=== PATIENT | male | born 1965 | race Caucasian/White ===

== ENCOUNTER 2023-10-07 07:08 | Inpatient (IN) | payer MEDICAID, OTHER ==
[~2023-10-07] VITALS: Ht 172.7 cm; Wt 59.0 kg
[2023-10-07] VITALS (43 sets, daily range): BP systolic 103–168; BP diastolic 61–135; PULSE 46–61; RESP 11–20; TEMP 97.4–98.1
[2023-10-07] MEDS ORDERED: ETOMIDATE 2MG/ML 10ML VIAL IV ONE (07:45)
[2023-10-07] MEDS ORDERED: SUCCINYLCHOLINE CHLORIDE 200MG/10ML IV ONE (07:45)
[2023-10-07] MEDS ORDERED: PROPOFOL 10MG/ML 100ML 100 ML IV ONE ×2 (07:45→12:00)
[2023-10-07 08:05] LABS: BASOPHILS % 2.2 % (0.0-2.0); DIFFERENTIAL COMMENT 0; EOSINOPHILS % 3.6 % (0.0-5.0); HEMATOCRIT. 21.9 % (42.0-52.0); LYMPHOCYTES % 19.2 % (20.0-50.0); MEAN CORPUSCULAR HEMOGLOBIN 29.1 pg (28.0-32.0); MEAN CORPUSCULAR HGB CONC 30.6 g/dL (31.0-37.0); MEAN CORPUSCULAR VOLUME 95.3 fL (80.0-94.0); MEAN PLATELET VOLUME 8.9 fl (7.4-10.4); MONOCYTES % 10.2 % (2.0-8.0); NEUTROPHILS % 64.8 % (40.0-76.0); PLATELET 200 x1000/uL (130-400); RED CELL DISTRIBUTION WIDTH 21.2 % (11.6-14.6); WHITE BLOOD COUNT 6.1 x1000/uL (4.5-11.0)
[2023-10-07 08:13] LABS: HEMOGLOBIN. 6.7 g/dL (14.0-18.0)
[2023-10-07 08:17] LABS: INR 1.2; PROTHROMBIN TIME 13.2 sec (9.6-11.0)
[2023-10-07 08:50] LABS: BG BASE EXCESS 2.9 mmol/L (-2.0-2.0); BG DEOXYHEMOGLOBIN 0.3 % (0.0-5.0); BG FRACTION INSPIRED OXYGEN 100; BG HCO3 ACT 27.2 mmol/L (22.0-26.0); BG METHEMOGLOBIN 0.1 % (0.0-1.5); BG OXYGEN SATURATION 99.7 % (92.0-98.5); BG OXYHEMOGLOBIN 98.6 % (94.0-97.0); BG PCO2 40.2 mmHg (35.0-45.0); BG PH 7.448 (7.350-7.450); BG PO2 445.5 mmHg (75.0-100.0); BG SAMPLE SITE RIGHT RADIAL; BG TOTAL HEMOGLOBIN 8.1 g/dL (12.0-18.0); BG TOTAL RESPIRATORY RATE 26 b/min; BG VENT MODE VENT - AC
[2023-10-07 08:53] LABS: ALANINE AMINOTRANSFERASE 15 IU/L (10-49); ALBUMIN 3.2 g/dL (3.2-4.8); ASPARTATE AMINOTRANSFERASE 29 IU/L (<34); BILIRUBIN TOTAL 0.6 mg/dL (0.1-1.0); CALCIUM 8.5 mg/dL (8.7-10.4); CARBON DIOXIDE 27 mEq/L (21-32); CHLORIDE 98 mEq/L (98-107); GLUCOSE 125 mg/dL (70-105); PROTEIN TOTAL 6.7 g/dL (6.0-8.3); SODIUM 137 mEq/L (136-145); TROPONIN I HIGH SENSITIVITY 21 ng/L (3.0-53); UREA NITROGEN BLOOD 43 mg/dL (9-23)
[2023-10-07 08:57] LABS: ETHANOL BLOOD < 10 mg/dL (<10)
[2023-10-07 08:59] LABS: CREATININE 5.7 mg/dL (0.6-1.3)
[2023-10-07] MEDS ORDERED: MIDAZOLAM HCL 100 MG in DEXT 5% WATER 80 ML IV ONE (09:00)
[2023-10-07] MEDS ORDERED: FENTANYL CITRATE/PF 50MCG/ML 2ML VIAL IV ONE (09:00)
[2023-10-07] MEDS ORDERED: MIDAZOLAM HCL 100 MG in SODIUM CHLORIDE 0.9% 100 ML IV PRN ×2 (09:00→17:00)
[2023-10-07] MEDS ORDERED: LIDOCAINE HCL 1% 10 MG/ML 10ML VIAL ONE (09:48)
[2023-10-07] MEDS ORDERED: ENOXAPARIN 40MG/0.4ML SYR SUBCUT SCH (10:15)
[2023-10-07] MEDS ORDERED: CLONIDINE 0.1MG TABLET PO PRN (10:15)
[2023-10-07] MEDS ORDERED: ACETAMINOPHEN 325MG TABLET PO PRN ×2 (10:15→10:30)
[2023-10-07] MEDS ORDERED: ONDANSETRON HCL 4MG/2ML INJ IV PRN (10:30)
[2023-10-07] MEDS ORDERED: DOCUSATE SODIUM 100MG CAPSULE PO PRN (10:30)
[2023-10-07] MEDS ORDERED: MAGNESIUM/ALUMINUM HYDROXIDE/SIMETHICONE 30ML UDC PO PRN (10:30)
[2023-10-07] MEDS ORDERED: IPRATROPIUM/ALBUTEROL 0.5-3(2.5)MG/3ML NEB HHN SCH ×2 (10:30→12:00)
[2023-10-07] MEDS ORDERED: GUAIFENESIN 200MG/10ML SUGAR FREE UDC PO PRN (10:30)
[2023-10-07] MEDS ORDERED: PIPERACILLIN/TAZ 3.375G PREMIX 50 ML IV SCH ×2 (10:30→11:00)
[2023-10-07] MEDS ORDERED: IPRATROPIUM/ALBUTEROL 0.5-3(2.5)MG/3ML NEB NEB PRN (10:30)
[2023-10-07] MEDS ORDERED: VANCOMYCIN 1.5GM/250ML IVPB 250 ML IV SCH (11:00)
[2023-10-07] MEDS ORDERED: DEXT 5%/0.45% NACL 1000ML 1,000 ML IV SCH (11:00)
[2023-10-07] MEDS ORDERED: IOHEXOL-350 100 ML BOTTLE ONE (11:14)
[2023-10-07 11:17] LABS: CHOLESTEROL 67 mg/dL (<200); HDL CHOLESTEROL 38 mg/dL (>55); IRON 32 ug/dL (65-175); LDL CHOLESTEROL 32 mg/dL (5-100); T4 FREE 1.21 ng/dL (0.89-1.76); THYROID STIMULATING HORMONE 1.87 uIU/mL (0.55-4.78); TOTAL IRON BINDING CAPACITY 209 ug/dl (250-425); TRIGLYCERIDE 49 mg/dL (0-150)
[2023-10-07 11:19] LABS: ETHANOL BLOOD < 10 mg/dL (<10)
[2023-10-07 11:30] LABS: AMMONIA < 17 uMol/L (<32)
[2023-10-07 12:05] LABS: PHOSPHORUS 5.8 mg/dL (2.5-4.9)
[2023-10-07 12:42] LABS: BG BASE EXCESS 2.4 mmol/L (-2.0-2.0); BG CARBOXYHEMOGLOBIN 1.3 % (0.5-1.5); BG DEOXYHEMOGLOBIN 0.3 % (0.0-5.0); BG FRACTION INSPIRED OXYGEN 100; BG METHEMOGLOBIN 0.1 % (0.0-1.5); BG OXYGEN SATURATION 99.7 % (92.0-98.5); BG OXYHEMOGLOBIN 98.3 % (94.0-97.0); BG PCO2 35.7 mmHg (35.0-45.0); BG PO2 431.9 mmHg (75.0-100.0); BG SAMPLE SITE RIGHT BRACHIAL; BG TOTAL HEMOGLOBIN 7.7 g/dL (12.0-18.0); BG VENT MODE VENT - AC
[2023-10-07] MEDS ORDERED: CARV6.2548 PO (14:57)
[2023-10-07] MEDS ORDERED: ATOR20TA65 PO (14:57)
[2023-10-07] MEDS ORDERED: CLOP75TA33 PO (14:57)
[2023-10-07] MEDS ORDERED: LOSA100T33 PO (14:57)
[2023-10-07] MEDS ORDERED: FURO80TA3 PO (14:57)
[2023-10-07] MEDS ORDERED: ASPI81TA43 PO (14:57)
[2023-10-07] MEDS: INSULIN LISPRO 100 UNITS/ML SUBCUT SCH ×2 (15:10→21:00)
[2023-10-07] MEDS: BLOOD SUGAR DIAGNOSTIC STRIP TEST SCH ×2 (15:11→21:02)
[2023-10-07 15:36] LABS: CREATINE KINASE 105 IU/L (46-171); TROPONIN I HIGH SENSITIVITY 23 ng/L (3.0-53)
[2023-10-07] MEDS ORDERED: MIDAZOLAM 100MG/100ML PMX 100 ML IV PRN (16:30)
[2023-10-07 17:04] LABS: VITAMIN B12 SERUM > 2000 pg/mL (211-911)
[2023-10-07] MEDS: DEXT 5%/0.45% NACL 1000ML 1,000 ML IV SCH (17:18)
[2023-10-07 17:36] LABS: HEMATOCRIT 25.5 % (42.0-52.0); HEMOGLOBIN 7.9 g/dL (14.0-18.0)
[2023-10-07] MEDS: CLONIDINE 0.1MG TABLET PO PRN (17:54)
[2023-10-07] MEDS: DEXTROSE 50% WATER 50ML SYRINGE IV PRN (18:25)
[2023-10-07 18:36] LABS: CLARITY URINE CLOUDY (CLEAR); COLOR URINE DARK YELLOW (YELLOW); GLUCOSE URINE NEGATIVE (NEGATIVE); KETONES URINE NEGATIVE (NEGATIVE); LEUKOCYTE ESTERASE URINE 1+ (NEGATIVE); NITRITE URINE NEGATIVE (NEGATIVE); OCCULT BLOOD URINE 2+ (NEGATIVE); PH URINE >9.0 (4.5-8.0); PROTEIN URINE NEGATIVE (NEGATIVE); SPECIFIC GRAVITY URINE 1.016 (1.005-1.030)
[2023-10-07 18:42] LABS: *AMPHETAMINES SCREEN URINE NEGATIVE (NEGATIVE); *BARBITURATES SCREEN URINE NEGATIVE (NEGATIVE); *BENZODIAZEPINES SCREEN URINE PRESUMPTIVE POSITIVE (NEGATIVE); *COCAINE SCREEN URINE NEGATIVE (NEGATIVE); CANNABINOID URINE SCREEN NEGATIVE (NEGATIVE); ECSTASY MDMA SCREEN URINE NEGATIVE (NEGATIVE); METHADONE URINE SCREEN Neg (NEGATIVE); OPIATES URINE SCREEN NEGATIVE (NEGATIVE); PHENCYCLIDINE URINE SCREEN NEGATIVE (NEGATIVE)
[2023-10-07 19:20] LABS: BACTERIA URINE 1+; RBC URINE TNTC /hpf (0-2); SQUAMOUS EPITHELIAL CELL URINE 1+ /lpf (RARE/1+)
[2023-10-07] MEDS: IPRATROPIUM/ALBUTEROL 0.5-3(2.5)MG/3ML NEB HHN SCH (20:29)
[2023-10-07] MEDS: PIPERACILLIN/TAZOBACTAM 3.375 G in DEXTROSE 5% WATER 50 ML IV SCH (20:43)
[2023-10-07] MEDS: PANTOPRAZOLE SODIUM 40 MG/VIAL IV SCH (20:43)
[2023-10-07] MEDS ORDERED: PIPERACILLIN/TAZOBACTAM 3.375 G in DEXTROSE 5% WATER 50 ML IV SCH (21:00)
[2023-10-07 22:21] LABS: HEPATITIS A AB IGM NEGATIVE (Negative); HEPATITIS B CORE AB IGM NEGATIVE (Negative); HEPATITIS B SURFACE ANTIGEN NEGATIVE (Negative); HEPATITIS C AB NON REACTIVE (Neg) (Negative)
[2023-10-07] MEDS: EPOETIN ALFA 4000UNITS/ML VIAL SUBCUT SCH (22:27)
[2023-10-07 23:47] LABS: CREATINE KINASE 94 IU/L (46-171); TROPONIN I HIGH SENSITIVITY 23 ng/L (3.0-53)
[2023-10-07 23:48] LABS: FOLIC ACID (FOLATE) SERUM 19.12 ng/mL (>5.38)
[2023-10-08] VITALS (69 sets, daily range): BP systolic 116–157; BP diastolic 60–91; PULSE 46–64; RESP 0–27; TEMP 96.5–98.5
[2023-10-08] MEDS: DEXT 5%/0.45% NACL 1000ML 1,000 ML IV SCH ×2 (05:26→09:37)
[2023-10-08 05:27] LABS: HEMATOCRIT. 26.7 % (42.0-52.0); HEMOGLOBIN. 8.4 g/dL (14.0-18.0); MEAN CORPUSCULAR HEMOGLOBIN 30.1 pg (28.0-32.0); MEAN CORPUSCULAR HGB CONC 31.4 g/dL (31.0-37.0); MEAN CORPUSCULAR VOLUME 95.9 fL (80.0-94.0); MEAN PLATELET VOLUME 8.7 fl (7.4-10.4); PLATELET 173 x1000/uL (130-400); RED BLOOD CELL COUNT 2.78 mill/uL (4.7-6.1); RED CELL DISTRIBUTION WIDTH 20.6 % (11.6-14.6); WHITE BLOOD COUNT 10.1 x1000/uL (4.5-11.0)
[2023-10-08 05:50] LABS: ALANINE AMINOTRANSFERASE 13 IU/L (10-49); ALBUMIN 2.8 g/dL (3.2-4.8); ASPARTATE AMINOTRANSFERASE 21 IU/L (<34); CALCIUM 8.3 mg/dL (8.7-10.4); CARBON DIOXIDE 26 mEq/L (21-32); CHLORIDE 101 mEq/L (98-107); CREATININE 4.6 mg/dL (0.6-1.3); GLUCOSE 68 mg/dL (70-105); PHOSPHORUS 4.4 mg/dL (2.5-4.9); POTASSIUM 4.3 mEq/L (3.5-5.1); SODIUM 136 mEq/L (136-145); TRIGLYCERIDE 58 mg/dL (0-150); UREA NITROGEN BLOOD 27 mg/dL (9-23)
[2023-10-08] MEDS: INSULIN LISPRO 100 UNITS/ML SUBCUT SCH ×4 (06:22→20:57)
[2023-10-08] MEDS: BLOOD SUGAR DIAGNOSTIC STRIP TEST SCH ×4 (06:22→20:57)
[2023-10-08] MEDS: DEXTROSE 50% WATER 50ML SYRINGE IV PRN (06:22)
[2023-10-08 07:04] LABS: DIFFERENTIAL COMMENT 1
[2023-10-08 08:07] LABS: BG CARBOXYHEMOGLOBIN 1.4 % (0.5-1.5); BG DEOXYHEMOGLOBIN 1.7 % (0.0-5.0); BG HCO3 ACT 24.2 mmol/L (22.0-26.0); BG METHEMOGLOBIN 0.3 % (0.0-1.5); BG OXYGEN SATURATION 98.3 % (92.0-98.5); BG OXYHEMOGLOBIN 96.6 % (94.0-97.0); BG PCO2 36.9 mmHg (35.0-45.0); BG PH 7.434 (7.350-7.450); BG PO2 122.9 mmHg (75.0-100.0); BG SAMPLE SITE RIGHT RADIAL; BG VENT MODE VENT - AC
[2023-10-08] MEDS: PROPOFOL 10MG/ML 100ML 100 ML IV PRN ×3 (08:16→20:57)
[2023-10-08] MEDS: IPRATROPIUM/ALBUTEROL 0.5-3(2.5)MG/3ML NEB HHN SCH ×4 (08:55→20:26)
[2023-10-08] MEDS: PANTOPRAZOLE SODIUM 40 MG/VIAL IV SCH ×2 (09:36→20:46)
[2023-10-08] MEDS: PIPERACILLIN/TAZOBACTAM 3.375 G in DEXTROSE 5% WATER 50 ML IV SCH ×2 (09:36→20:46)
[2023-10-08 11:15] LABS: LACTATE DEHYDROGENASE 453 IU/L (120-246)
[2023-10-08] MEDS: ENOXAPARIN 30MG/0.3ML SYR SUBCUT SCH (15:36)
[2023-10-08 16:19] LABS: BODY FLUID MONOCYTES 9 %
[2023-10-08 16:20] LABS: BODY FLUID RBC 26625 /cu mm (0-2000); BODY FLUID WBC 92 /cu mm (0-200)
[2023-10-08 16:43] LABS: ANISOCYTOSIS 2+; PLATELET ESTIMATE NORMAL
[2023-10-08] MEDS ORDERED: PROPOFOL 10MG/ML 100ML 100 ML IV PRN (17:45)
[2023-10-08 21:22] LABS: PROTEIN BODY FLUID 2.6 gm/dL
[2023-10-09] VITALS (83 sets, daily range): BP systolic 80–144; BP diastolic 49–74; PULSE 47–70; RESP 4–21; TEMP 96.9–98.1
[2023-10-09] MEDS: IPRATROPIUM/ALBUTEROL 0.5-3(2.5)MG/3ML NEB HHN SCH ×4 (01:01→20:27)
[2023-10-09 04:47] LABS: HEMATOCRIT. 26.9 % (42.0-52.0); HEMOGLOBIN. 8.7 g/dL (14.0-18.0); MEAN CORPUSCULAR HEMOGLOBIN 30.1 pg (28.0-32.0); MEAN CORPUSCULAR HGB CONC 32.2 g/dL (31.0-37.0); MEAN CORPUSCULAR VOLUME 93.4 fL (80.0-94.0); MEAN PLATELET VOLUME 8.8 fl (7.4-10.4); PLATELET 159 x1000/uL (130-400); RED BLOOD CELL COUNT 2.89 mill/uL (4.7-6.1); WHITE BLOOD COUNT 8.8 x1000/uL (4.5-11.0)
[2023-10-09 05:01] LABS: CALCIUM 8.1 mg/dL (8.7-10.4); CARBON DIOXIDE 25 mEq/L (21-32); CHLORIDE 100 mEq/L (98-107); GLUCOSE 107 mg/dL (70-105); PHOSPHORUS 5.4 mg/dL (2.5-4.9); POTASSIUM 4.6 mEq/L (3.5-5.1); SODIUM 134 mEq/L (136-145); TRIGLYCERIDE 75 mg/dL (0-150); UREA NITROGEN BLOOD 32 mg/dL (9-23)
[2023-10-09 05:05] LABS: CREATININE 5.8 mg/dL (0.6-1.3)
[2023-10-09 05:26] LABS: DIFFERENTIAL COMMENT 1
[2023-10-09] MEDS: BLOOD SUGAR DIAGNOSTIC STRIP TEST SCH ×4 (06:52→21:59)
[2023-10-09] MEDS: INSULIN LISPRO 100 UNITS/ML SUBCUT SCH ×4 (06:52→21:59)
[2023-10-09 09:28] LABS: BG BASE EXCESS -2.8 mmol/L (-2.0-2.0); BG CARBOXYHEMOGLOBIN 0.6 % (0.5-1.5); BG DEOXYHEMOGLOBIN 3.2 % (0.0-5.0); BG FRACTION INSPIRED OXYGEN 30; BG HCO3 ACT 21.5 mmol/L (22.0-26.0); BG METHEMOGLOBIN 0.1 % (0.0-1.5); BG OXYGEN SATURATION 96.8 % (92.0-98.5); BG OXYHEMOGLOBIN 96.1 % (94.0-97.0); BG PCO2 35.1 mmHg (35.0-45.0); BG PH 7.405 (7.350-7.450); BG SAMPLE SITE LEFT BRACHIAL; BG TOTAL HEMOGLOBIN 9.3 g/dL (12.0-18.0); BG VENT MODE VENT - AC
[2023-10-09] MEDS ORDERED: VANCOMYCIN 1.25GM PMX (XELLIA) 250 ML IV NR (09:30)
[2023-10-09 09:45] LABS: ANISOCYTOSIS 2+; PLATELET ESTIMATE NORMAL
[2023-10-09] MEDS: PIPERACILLIN/TAZOBACTAM 3.375 G in DEXTROSE 5% WATER 50 ML IV SCH ×2 (10:00→21:59)
[2023-10-09] MEDS: PANTOPRAZOLE SODIUM 40 MG/VIAL IV SCH ×2 (10:00→21:59)
[2023-10-09] MEDS: ENOXAPARIN 30MG/0.3ML SYR SUBCUT SCH (10:10)
[2023-10-09] MEDS: EPOETIN ALFA 4000UNITS/ML VIAL SUBCUT SCH (21:59)
[2023-10-10] VITALS (100 sets, daily range): BP systolic 127–152; BP diastolic 50–72; PULSE 43–66; RESP 0–23; TEMP 97.6–98.2
[2023-10-10] MEDS: PROPOFOL 10MG/ML 100ML 100 ML IV PRN ×3 (01:51→10:41)
[2023-10-10] MEDS: IPRATROPIUM/ALBUTEROL 0.5-3(2.5)MG/3ML NEB HHN SCH ×4 (02:34→19:49)
[2023-10-10 05:43] LABS: BASOPHILS % 0.5 % (0.0-2.0); EOSINOPHILS % 4.9 % (0.0-5.0); HEMATOCRIT. 26.2 % (42.0-52.0); HEMOGLOBIN. 8.2 g/dL (14.0-18.0); LYMPHOCYTES % 9.8 % (20.0-50.0); MEAN CORPUSCULAR HEMOGLOBIN 29.8 pg (28.0-32.0); MEAN CORPUSCULAR HGB CONC 31.4 g/dL (31.0-37.0); MEAN CORPUSCULAR VOLUME 94.8 fL (80.0-94.0); MEAN PLATELET VOLUME 8.8 fl (7.4-10.4); MONOCYTES % 8.5 % (2.0-8.0); NEUTROPHILS % 76.3 % (40.0-76.0); PLATELET 153 x1000/uL (130-400); RED BLOOD CELL COUNT 2.76 mill/uL (4.7-6.1); RED CELL DISTRIBUTION WIDTH 20.7 % (11.6-14.6); WHITE BLOOD COUNT 9.6 x1000/uL (4.5-11.0)
[2023-10-10] MEDS: BLOOD SUGAR DIAGNOSTIC STRIP TEST SCH ×4 (05:43→21:04)
[2023-10-10] MEDS: INSULIN LISPRO 100 UNITS/ML SUBCUT SCH ×4 (05:47→21:00)
[2023-10-10 05:55] LABS: CALCIUM 8.2 mg/dL (8.7-10.4); CARBON DIOXIDE 25 mEq/L (21-32); CHLORIDE 103 mEq/L (98-107); CREATININE 4.4 mg/dL (0.6-1.3); GLUCOSE 134 mg/dL (70-105); PHOSPHORUS 4.7 mg/dL (2.5-4.9); POTASSIUM 3.9 mEq/L (3.5-5.1); SODIUM 140 mEq/L (136-145); UREA NITROGEN BLOOD 27 mg/dL (9-23)
[2023-10-10 08:22] LABS: BG CARBOXYHEMOGLOBIN 0.7 % (0.5-1.5); BG DEOXYHEMOGLOBIN 9.5 % (0.0-5.0); BG METHEMOGLOBIN 0.3 % (0.0-1.5); BG OXYGEN SATURATION 90.4 % (92.0-98.5); BG OXYHEMOGLOBIN 89.5 % (94.0-97.0); BG PCO2 42.2 mmHg (35.0-45.0); BG PH 7.391 (7.350-7.450); BG PO2 64.4 mmHg (75.0-100.0); BG SAMPLE SITE RIGHT RADIAL; BG VENT MODE VENT - AC
[2023-10-10] MEDS: PIPERACILLIN/TAZOBACTAM 3.375 G in DEXTROSE 5% WATER 50 ML IV SCH ×2 (08:55→21:04)
[2023-10-10] MEDS: PANTOPRAZOLE SODIUM 40 MG/VIAL IV SCH ×2 (08:55→21:04)
[2023-10-10] MEDS ORDERED: ENOXAPARIN 30MG/0.3ML SYR SUBCUT ONE (12:15)
[2023-10-10] MEDS ORDERED: ZINC OXIDE 20% OINT 30GM TOP PRN (17:00)
[2023-10-10] MEDS: HYDRALAZINE 20MG/ML VIAL IV PRN (17:14)
[2023-10-10] MEDS ORDERED: IOHEXOL-300 100 ML BOTTLE ONE (18:38)
[2023-10-11] VITALS (64 sets, daily range): BP systolic 115–164; BP diastolic 57–77; PULSE 59–73; RESP 9–21; TEMP 97.4–98.2
[2023-10-11] MEDS: IPRATROPIUM/ALBUTEROL 0.5-3(2.5)MG/3ML NEB HHN SCH ×4 (04:11→20:14)
[2023-10-11] MEDS: HYDRALAZINE 20MG/ML VIAL IV PRN (04:37)
[2023-10-11 05:43] LABS: BASOPHILS % 0.8 % (0.0-2.0); EOSINOPHILS % 6.7 % (0.0-5.0); HEMATOCRIT. 28.8 % (42.0-52.0); HEMOGLOBIN. 8.9 g/dL (14.0-18.0); LYMPHOCYTES % 13.8 % (20.0-50.0); MEAN CORPUSCULAR HGB CONC 30.8 g/dL (31.0-37.0); MEAN CORPUSCULAR VOLUME 94.1 fL (80.0-94.0); MEAN PLATELET VOLUME 8.3 fl (7.4-10.4); MONOCYTES % 10.4 % (2.0-8.0); NEUTROPHILS % 68.3 % (40.0-76.0); PLATELET 159 x1000/uL (130-400); RED BLOOD CELL COUNT 3.06 mill/uL (4.7-6.1); RED CELL DISTRIBUTION WIDTH 20.2 % (11.6-14.6); WHITE BLOOD COUNT 8.3 x1000/uL (4.5-11.0)
[2023-10-11] MEDS: BLOOD SUGAR DIAGNOSTIC STRIP TEST SCH ×4 (06:02→20:43)
[2023-10-11] MEDS: INSULIN LISPRO 100 UNITS/ML SUBCUT SCH ×4 (06:15→20:44)
[2023-10-11] MEDS: PIPERACILLIN/TAZOBACTAM 3.375 G in DEXTROSE 5% WATER 50 ML IV SCH ×2 (08:41→20:43)
[2023-10-11] MEDS: ENOXAPARIN 30MG/0.3ML SYR SUBCUT SCH (08:43)
[2023-10-11 08:44] LABS: BG CARBOXYHEMOGLOBIN 0.3 % (0.5-1.5); BG DEOXYHEMOGLOBIN 2.2 % (0.0-5.0); BG FRACTION INSPIRED OXYGEN 30; BG METHEMOGLOBIN 0.2 % (0.0-1.5); BG OXYGEN SATURATION 97.8 % (92.0-98.5); BG OXYHEMOGLOBIN 97.3 % (94.0-97.0); BG PCO2 42.2 mmHg (35.0-45.0); BG PH 7.391 (7.350-7.450); BG PO2 121.1 mmHg (75.0-100.0); BG SAMPLE SITE LEFT RADIAL; BG TOTAL HEMOGLOBIN 9.1 g/dL (12.0-18.0); BG VENT MODE VENT - AC
[2023-10-11] MEDS: PANTOPRAZOLE SODIUM 40 MG/VIAL IV SCH ×2 (08:44→20:43)
[2023-10-11 09:23] LABS: CALCIUM 8.5 mg/dL (8.7-10.4); CARBON DIOXIDE 23 mEq/L (21-32); CHLORIDE 102 mEq/L (98-107); GLUCOSE 119 mg/dL (70-105); PHOSPHORUS 6.1 mg/dL (2.5-4.9); POTASSIUM 4.4 mEq/L (3.5-5.1); SODIUM 137 mEq/L (136-145); UREA NITROGEN BLOOD 36 mg/dL (9-23)
[2023-10-11 09:29] LABS: CREATININE 5.3 mg/dL (0.6-1.3)
[2023-10-11] MEDS ORDERED: AMLODIPINE 10MG TABLET PO NR (10:15)
[2023-10-11] MEDS ORDERED: LOSARTAN 25 MG TABLET PO SCH (15:15)
[2023-10-11] MEDS ORDERED: LACTULOSE 20G/30ML UDC PO PRN (15:30)
[2023-10-11] MEDS ORDERED: IRON SUCROSE COMPLEX 100 MG/5 ML ML IV SCH (16:00)
[2023-10-11 17:59] LABS: BG BASE EXCESS 4.6 mmol/L (-2.0-2.0); BG CARBOXYHEMOGLOBIN 0.7 % (0.5-1.5); BG DEOXYHEMOGLOBIN 1.9 % (0.0-5.0); BG FRACTION INSPIRED OXYGEN 30; BG HCO3 ACT 29.2 mmol/L (22.0-26.0); BG OXYGEN SATURATION 98.1 % (92.0-98.5); BG OXYHEMOGLOBIN 97.4 % (94.0-97.0); BG PCO2 43.8 mmHg (35.0-45.0); BG PH 7.442 (7.350-7.450); BG PO2 110.9 mmHg (75.0-100.0); BG SAMPLE SITE RIGHT RADIAL; BG TOTAL HEMOGLOBIN 8.5 g/dL (12.0-18.0); BG VENT MODE VENT - SIMV
[2023-10-11] MEDS: EPOETIN ALFA 4000UNITS/ML VIAL SUBCUT SCH (21:12)
[2023-10-11] MEDS: HYDRALAZINE HCL 25MG TABLET PO SCH (21:12)
[2023-10-12] VITALS (57 sets, daily range): BP systolic 125–161; BP diastolic 61–83; PULSE 61–74; RESP 12–22; TEMP 97.4–98.7
[2023-10-12] MEDS: IPRATROPIUM/ALBUTEROL 0.5-3(2.5)MG/3ML NEB HHN SCH ×3 (00:28→14:48)
[2023-10-12] MEDS: LORAZEPAM 4MG/ML VIAL IV PRN ×2 (01:32→08:27)
[2023-10-12 04:45] LABS: BASOPHILS % 1.3 % (0.0-2.0); EOSINOPHILS % 8.1 % (0.0-5.0); HEMATOCRIT. 29.7 % (42.0-52.0); HEMOGLOBIN. 9.3 g/dL (14.0-18.0); LYMPHOCYTES % 15.3 % (20.0-50.0); MEAN CORPUSCULAR HEMOGLOBIN 29.3 pg (28.0-32.0); MEAN CORPUSCULAR HGB CONC 31.5 g/dL (31.0-37.0); MEAN CORPUSCULAR VOLUME 93.2 fL (80.0-94.0); MEAN PLATELET VOLUME 8.3 fl (7.4-10.4); MONOCYTES % 10.3 % (2.0-8.0); PLATELET 163 x1000/uL (130-400); RED BLOOD CELL COUNT 3.19 mill/uL (4.7-6.1); RED CELL DISTRIBUTION WIDTH 19.6 % (11.6-14.6); WHITE BLOOD COUNT 6.8 x1000/uL (4.5-11.0)
[2023-10-12 05:08] LABS: CALCIUM 8.6 mg/dL (8.7-10.4); CARBON DIOXIDE 29 mEq/L (21-32); CHLORIDE 102 mEq/L (98-107); CREATININE 4.5 mg/dL (0.6-1.3); GLUCOSE 114 mg/dL (70-105); PHOSPHORUS 4.9 mg/dL (2.5-4.9); POTASSIUM 3.9 mEq/L (3.5-5.1); SODIUM 141 mEq/L (136-145); UREA NITROGEN BLOOD 35 mg/dL (9-23)
[2023-10-12] MEDS: HYDRALAZINE HCL 25MG TABLET PO SCH ×3 (05:14→21:35)
[2023-10-12] MEDS: INSULIN LISPRO 100 UNITS/ML SUBCUT SCH ×4 (06:23→21:00)
[2023-10-12] MEDS: BLOOD SUGAR DIAGNOSTIC STRIP TEST SCH ×4 (06:23→22:00)
[2023-10-12 08:26] LABS: BG BASE EXCESS 3.5 mmol/L (-2.0-2.0); BG DEOXYHEMOGLOBIN 2.4 % (0.0-5.0); BG HCO3 ACT 28.6 mmol/L (22.0-26.0); BG METHEMOGLOBIN 0.2 % (0.0-1.5); BG OXYGEN SATURATION 97.6 % (92.0-98.5); BG OXYHEMOGLOBIN 96.4 % (94.0-97.0); BG PCO2 45.9 mmHg (35.0-45.0); BG PH 7.412 (7.350-7.450); BG PO2 101.2 mmHg (75.0-100.0); BG SAMPLE SITE RIGHT RADIAL; BG TOTAL HEMOGLOBIN 9.2 g/dL (12.0-18.0); BG VENT MODE VENT - SIMV
[2023-10-12] MEDS: POLYETHYLENE GLYCOL 3350 (17GM) 1 DOSE PACK PO SCH (09:00)
[2023-10-12] MEDS: PIPERACILLIN/TAZOBACTAM 3.375 G in DEXTROSE 5% WATER 50 ML IV SCH ×2 (09:07→21:17)
[2023-10-12] MEDS: ENOXAPARIN 30MG/0.3ML SYR SUBCUT SCH (09:08)
[2023-10-12] MEDS: PANTOPRAZOLE SODIUM 40 MG/VIAL IV SCH ×2 (09:09→21:17)
[2023-10-12] MEDS: HYDRALAZINE 20MG/ML VIAL IV PRN ×2 (09:26→18:59)
[2023-10-12 12:02] LABS: BG BASE EXCESS 4.4 mmol/L (-2.0-2.0); BG CARBOXYHEMOGLOBIN 0.9 % (0.5-1.5); BG DEOXYHEMOGLOBIN 2.4 % (0.0-5.0); BG METHEMOGLOBIN 0.2 % (0.0-1.5); BG OXYGEN SATURATION 97.6 % (92.0-98.5); BG OXYHEMOGLOBIN 96.5 % (94.0-97.0); BG PCO2 49.7 mmHg (35.0-45.0); BG PH 7.398 (7.350-7.450); BG PO2 101.1 mmHg (75.0-100.0); BG SAMPLE SITE RIGHT RADIAL; BG TOTAL HEMOGLOBIN 9.7 g/dL (12.0-18.0); BG VENT MODE VENT - CPAP
[2023-10-12] MEDS ORDERED: FENTANYL CITRATE/PF 2,500 MCG in SODIUM CHLORIDE 0.9% 200 ML IV PRN (21:00)
[2023-10-12] MEDS: PROPOFOL 10MG/ML 100ML 100 ML IV PRN (21:02)
[2023-10-13] VITALS (92 sets, daily range): BP systolic 106–170; BP diastolic 54–81; PULSE 55–103; RESP 8–26; TEMP 97.3–98.3; O2SAT 95
[2023-10-13] MEDS: PROPOFOL 10MG/ML 100ML 100 ML IV PRN (02:59)
[2023-10-13] MEDS: BLOOD SUGAR DIAGNOSTIC STRIP TEST SCH ×4 (05:55→21:00)
[2023-10-13] MEDS: HYDRALAZINE HCL 25MG TABLET PO SCH ×3 (05:55→21:24)
[2023-10-13 06:03] LABS: BASOPHILS % 1.1 % (0.0-2.0); EOSINOPHILS % 10.2 % (0.0-5.0); HEMATOCRIT. 27.7 % (42.0-52.0); HEMOGLOBIN. 8.6 g/dL (14.0-18.0); LYMPHOCYTES % 17.2 % (20.0-50.0); MEAN CORPUSCULAR HEMOGLOBIN 29.2 pg (28.0-32.0); MEAN CORPUSCULAR VOLUME 94.2 fL (80.0-94.0); MEAN PLATELET VOLUME 8.2 fl (7.4-10.4); MONOCYTES % 14.5 % (2.0-8.0); PLATELET 151 x1000/uL (130-400); RED BLOOD CELL COUNT 2.94 mill/uL (4.7-6.1); RED CELL DISTRIBUTION WIDTH 19.3 % (11.6-14.6); WHITE BLOOD COUNT 5.9 x1000/uL (4.5-11.0)
[2023-10-13 06:26] LABS: CALCIUM 8.5 mg/dL (8.7-10.4); CARBON DIOXIDE 27 mEq/L (21-32); CHLORIDE 102 mEq/L (98-107); GLUCOSE 114 mg/dL (70-105); PHOSPHORUS 4.6 mg/dL (2.5-4.9); POTASSIUM 3.9 mEq/L (3.5-5.1); SODIUM 139 mEq/L (136-145); UREA NITROGEN BLOOD 35 mg/dL (9-23)
[2023-10-13 06:37] LABS: CREATININE 5.5 mg/dL (0.6-1.3)
[2023-10-13] MEDS: INSULIN LISPRO 100 UNITS/ML SUBCUT SCH ×4 (06:37→21:00)
[2023-10-13] MEDS: ACETYLCYSTEINE 200MG/ML 20% VIAL 4ML INH SCH (08:15)
[2023-10-13] MEDS: PANTOPRAZOLE SODIUM 40 MG/VIAL IV SCH ×2 (08:49→21:23)
[2023-10-13] MEDS: POLYETHYLENE GLYCOL 3350 (17GM) 1 DOSE PACK PO SCH (08:49)
[2023-10-13] MEDS: PIPERACILLIN/TAZOBACTAM 3.375 G in DEXTROSE 5% WATER 50 ML IV SCH ×2 (08:49→21:23)
[2023-10-13] MEDS: FOLIC ACID/VITAMIN B COMP W-C TABLET PO SCH (08:49)
[2023-10-13] MEDS: ENOXAPARIN 30MG/0.3ML SYR SUBCUT SCH (08:50)
[2023-10-13 09:48] LABS: BG BASE EXCESS 0.5 mmol/L (-2.0-2.0); BG DEOXYHEMOGLOBIN 5.3 % (0.0-5.0); BG FRACTION INSPIRED OXYGEN 30; BG HCO3 ACT 25.7 mmol/L (22.0-26.0); BG METHEMOGLOBIN 0.3 % (0.0-1.5); BG OXYGEN SATURATION 94.6 % (92.0-98.5); BG OXYHEMOGLOBIN 93.4 % (94.0-97.0); BG PCO2 44.2 mmHg (35.0-45.0); BG PH 7.383 (7.350-7.450); BG PO2 80.7 mmHg (75.0-100.0); BG SAMPLE SITE LEFT RADIAL; BG TOTAL HEMOGLOBIN 9.7 g/dL (12.0-18.0); BG VENT MODE VENT - SIMV
[2023-10-13] MEDS: HYDRALAZINE 20MG/ML VIAL IV PRN (11:58)
[2023-10-13] MEDS: CLONIDINE 0.1MG TABLET PO PRN (11:58)
[2023-10-13 13:07] LABS: BG CARBOXYHEMOGLOBIN 0.7 % (0.5-1.5); BG DEOXYHEMOGLOBIN 2.9 % (0.0-5.0); BG HCO3 ACT 28.3 mmol/L (22.0-26.0); BG METHEMOGLOBIN 0.1 % (0.0-1.5); BG OXYGEN SATURATION 97.1 % (92.0-98.5); BG OXYHEMOGLOBIN 96.3 % (94.0-97.0); BG PCO2 52.5 mmHg (35.0-45.0); BG PO2 102.3 mmHg (75.0-100.0); BG SAMPLE SITE LEFT RADIAL; BG TOTAL HEMOGLOBIN 11.1 g/dL (12.0-18.0); BG VENT MODE VENT - CPAP
[2023-10-13] MEDS: IPRATROPIUM/ALBUTEROL 0.5-3(2.5)MG/3ML NEB HHN SCH (20:01)
[2023-10-13] MEDS: ACETAMINOPHEN 325MG TABLET PO PRN (21:23)
[2023-10-14] VITALS (49 sets, daily range): BP systolic 120–157; BP diastolic 47–87; PULSE 67–90; RESP 14–31; TEMP 97.5–99.6; O2SAT 98–99
[2023-10-14] MEDS: IPRATROPIUM/ALBUTEROL 0.5-3(2.5)MG/3ML NEB HHN SCH ×4 (02:40→20:00)
[2023-10-14] MEDS: BLOOD SUGAR DIAGNOSTIC STRIP TEST SCH ×4 (05:54→21:00)
[2023-10-14] MEDS: HYDRALAZINE HCL 25MG TABLET PO SCH ×3 (06:00→23:00)
[2023-10-14 06:36] LABS: BASOPHILS % 0.4 % (0.0-2.0); EOSINOPHILS % 2.4 % (0.0-5.0); HEMATOCRIT. 26.7 % (42.0-52.0); HEMOGLOBIN. 8.3 g/dL (14.0-18.0); LYMPHOCYTES % 8.4 % (20.0-50.0); MEAN CORPUSCULAR HEMOGLOBIN 28.7 pg (28.0-32.0); MEAN CORPUSCULAR HGB CONC 31.2 g/dL (31.0-37.0); MEAN CORPUSCULAR VOLUME 91.9 fL (80.0-94.0); MONOCYTES % 9.6 % (2.0-8.0); NEUTROPHILS % 79.2 % (40.0-76.0); PLATELET 142 x1000/uL (130-400); RED CELL DISTRIBUTION WIDTH 19.4 % (11.6-14.6); WHITE BLOOD COUNT 13.3 x1000/uL (4.5-11.0)
[2023-10-14] MEDS: INSULIN LISPRO 100 UNITS/ML SUBCUT SCH ×4 (06:46→21:00)
[2023-10-14 08:00] LABS: CALCIUM 8.7 mg/dL (8.7-10.4); CARBON DIOXIDE 26 mEq/L (21-32); CHLORIDE 101 mEq/L (98-107); GLUCOSE 74 mg/dL (70-105); PHOSPHORUS 4.9 mg/dL (2.5-4.9); POTASSIUM 4.3 mEq/L (3.5-5.1); SODIUM 139 mEq/L (136-145); UREA NITROGEN BLOOD 53 mg/dL (9-23)
[2023-10-14 09:00] LABS: CREATININE 6.5 mg/dL (0.6-1.3)
[2023-10-14] MEDS: PIPERACILLIN/TAZOBACTAM 3.375 G in DEXTROSE 5% WATER 50 ML IV SCH (09:09)
[2023-10-14] MEDS: FOLIC ACID/VITAMIN B COMP W-C TABLET PO SCH (09:10)
[2023-10-14] MEDS: POLYETHYLENE GLYCOL 3350 (17GM) 1 DOSE PACK PO SCH (09:10)
[2023-10-14] MEDS: PANTOPRAZOLE SODIUM 40 MG/VIAL IV SCH ×2 (09:10→23:17)
[2023-10-14] MEDS: ENOXAPARIN 30MG/0.3ML SYR SUBCUT SCH (09:11)
[2023-10-14] MEDS ORDERED: DIPHENHYDRAMINE 50MG/ML VIAL IV PRN (09:30)
[2023-10-14 09:53] LABS: BG BASE EXCESS -0.1 mmol/L (-2.0-2.0); BG CARBOXYHEMOGLOBIN 1.1 % (0.5-1.5); BG DEOXYHEMOGLOBIN 5.2 % (0.0-5.0); BG FRACTION INSPIRED OXYGEN 28; BG HCO3 ACT 25.6 mmol/L (22.0-26.0); BG METHEMOGLOBIN 0.3 % (0.0-1.5); BG OXYGEN SATURATION 94.7 % (92.0-98.5); BG OXYHEMOGLOBIN 93.4 % (94.0-97.0); BG PCO2 46.7 mmHg (35.0-45.0); BG PH 7.357 (7.350-7.450); BG PO2 81.8 mmHg (75.0-100.0); BG SAMPLE SITE LEFT RADIAL; BG TOTAL HEMOGLOBIN 9.1 g/dL (12.0-18.0); BG VENT MODE NASAL CANNULA
[2023-10-14] MEDS ORDERED: HALOPERIDOL LACTATE 5MG/ML VIAL IM NR (12:30)
[2023-10-14] MEDS: ACETYLCYSTEINE 200MG/ML 20% VIAL 4ML INH SCH (14:38)
[2023-10-14] MEDS ORDERED: VANCOMYCIN 500MG PREMIX 100 ML IV NR (18:00)
[2023-10-14] MEDS ORDERED: HALOPERIDOL LACTATE 5MG/ML VIAL IM PRN (18:00)
[2023-10-14] MEDS: EPOETIN ALFA 4000UNITS/ML VIAL SUBCUT SCH (22:59)
[2023-10-14] MEDS: CEFAZOLIN 1000MG PREMIX 50 ML IV SCH (23:39)
[2023-10-15] VITALS (9 sets, daily range): BP systolic 133–158; BP diastolic 63–79; PULSE 63–92; RESP 18–21; TEMP 97–98.6; O2SAT 90–91
[2023-10-15] MEDS: HYDRALAZINE HCL 25MG TABLET PO SCH ×3 (06:52→22:06)
[2023-10-15] MEDS: BLOOD SUGAR DIAGNOSTIC STRIP TEST SCH ×4 (06:54→21:00)
[2023-10-15] MEDS: INSULIN LISPRO 100 UNITS/ML SUBCUT SCH ×4 (06:55→21:00)
[2023-10-15 07:49] LABS: EOSINOPHILS % 5.8 % (0.0-5.0); HEMATOCRIT. 23.1 % (42.0-52.0); HEMOGLOBIN. 7.4 g/dL (14.0-18.0); MEAN CORPUSCULAR HEMOGLOBIN 29.1 pg (28.0-32.0); MEAN CORPUSCULAR HGB CONC 32.2 g/dL (31.0-37.0); MEAN CORPUSCULAR VOLUME 90.4 fL (80.0-94.0); MEAN PLATELET VOLUME 8.6 fl (7.4-10.4); MONOCYTES % 10.2 % (2.0-8.0); PLATELET 128 x1000/uL (130-400); RED BLOOD CELL COUNT 2.56 mill/uL (4.7-6.1); WHITE BLOOD COUNT 8.7 x1000/uL (4.5-11.0)
[2023-10-15] MEDS: POLYETHYLENE GLYCOL 3350 (17GM) 1 DOSE PACK PO SCH (08:43)
[2023-10-15] MEDS: FOLIC ACID/VITAMIN B COMP W-C TABLET PO SCH (08:43)
[2023-10-15] MEDS: ENOXAPARIN 30MG/0.3ML SYR SUBCUT SCH (08:43)
[2023-10-15] MEDS: PANTOPRAZOLE SODIUM 40 MG/VIAL IV SCH ×2 (08:43→22:13)
[2023-10-15 09:05] LABS: CALCIUM 8.8 mg/dL (8.7-10.4); CARBON DIOXIDE 26 mEq/L (21-32); CHLORIDE 100 mEq/L (98-107); GLUCOSE 60 mg/dL (70-105); PHOSPHORUS 6.1 mg/dL (2.5-4.9); POTASSIUM 4.6 mEq/L (3.5-5.1); SODIUM 139 mEq/L (136-145); UREA NITROGEN BLOOD 60 mg/dL (9-23)
[2023-10-15 09:06] LABS: CREATININE 6.3 mg/dL (0.6-1.3)
[2023-10-15] MEDS: IPRATROPIUM/ALBUTEROL 0.5-3(2.5)MG/3ML NEB HHN SCH ×2 (14:00→20:57)
[2023-10-15] MEDS: CEFAZOLIN 1000MG PREMIX 50 ML IV SCH (17:17)
[2023-10-15] MEDS: RISPERIDONE 0.5MG TABLET PO SCH (21:54)
[2023-10-15] MEDS: ACETYLCYSTEINE 200MG/ML 20% VIAL 4ML INH SCH (22:00)
[2023-10-16] VITALS (18 sets, daily range): BP systolic 128–169; BP diastolic 54–88; PULSE 71–83; RESP 16–20; TEMP 97.3–98.8; O2SAT 90–98
[2023-10-16] MEDS: IPRATROPIUM/ALBUTEROL 0.5-3(2.5)MG/3ML NEB HHN SCH ×5 (01:53→21:28)
[2023-10-16] MEDS: ACETYLCYSTEINE 200MG/ML 20% VIAL 4ML INH SCH ×3 (01:53→14:38)
[2023-10-16] MEDS: HYDRALAZINE HCL 25MG TABLET PO SCH ×3 (05:16→21:30)
[2023-10-16] MEDS: BLOOD SUGAR DIAGNOSTIC STRIP TEST SCH ×4 (05:21→21:00)
[2023-10-16] MEDS: INSULIN LISPRO 100 UNITS/ML SUBCUT SCH ×4 (05:22→21:31)
[2023-10-16 06:48] LABS: BASOPHILS % 0.9 % (0.0-2.0); EOSINOPHILS % 4.7 % (0.0-5.0); HEMATOCRIT. 23.5 % (42.0-52.0); HEMOGLOBIN. 7.7 g/dL (14.0-18.0); LYMPHOCYTES % 15.6 % (20.0-50.0); MEAN CORPUSCULAR HEMOGLOBIN 29.2 pg (28.0-32.0); MEAN CORPUSCULAR HGB CONC 32.6 g/dL (31.0-37.0); MEAN CORPUSCULAR VOLUME 89.6 fL (80.0-94.0); MEAN PLATELET VOLUME 8.1 fl (7.4-10.4); MONOCYTES % 9.9 % (2.0-8.0); NEUTROPHILS % 68.9 % (40.0-76.0); PLATELET 131 x1000/uL (130-400); RED BLOOD CELL COUNT 2.63 mill/uL (4.7-6.1); RED CELL DISTRIBUTION WIDTH 19.4 % (11.6-14.6)
[2023-10-16] MEDS: RISPERIDONE 0.5MG TABLET PO SCH ×2 (08:27→21:29)
[2023-10-16] MEDS: FOLIC ACID/VITAMIN B COMP W-C TABLET PO SCH (08:27)
[2023-10-16] MEDS: POLYETHYLENE GLYCOL 3350 (17GM) 1 DOSE PACK PO SCH (08:27)
[2023-10-16] MEDS: ENOXAPARIN 30MG/0.3ML SYR SUBCUT SCH (08:28)
[2023-10-16 08:33] LABS: CARBON DIOXIDE 23 mEq/L (21-32); CHLORIDE 99 mEq/L (98-107); GLUCOSE 65 mg/dL (70-105); PHOSPHORUS 7.2 mg/dL (2.5-4.9); POTASSIUM 5.1 mEq/L (3.5-5.1); SODIUM 137 mEq/L (136-145); UREA NITROGEN BLOOD 66 mg/dL (9-23)
[2023-10-16 08:38] LABS: CREATININE 7.1 mg/dL (0.6-1.3)
[2023-10-16] MEDS: CETIRIZINE 10MG TABLET PO SCH (09:22)
[2023-10-16] MEDS: AMLODIPINE 5MG TABLET PO SCH (09:22)
[2023-10-16] MEDS: CEFAZOLIN 1000MG PREMIX 50 ML IV SCH (19:26)
[2023-10-16] MEDS: EPOETIN ALFA 4000UNITS/ML VIAL SUBCUT SCH (21:28)
[2023-10-17] VITALS (9 sets, daily range): BP systolic 120–154; BP diastolic 60–80; PULSE 67–85; RESP 18–20; TEMP 96.8–98.6; O2SAT 91
[2023-10-17] MEDS: IPRATROPIUM/ALBUTEROL 0.5-3(2.5)MG/3ML NEB HHN SCH ×3 (00:37→18:41)
[2023-10-17] MEDS: ACETYLCYSTEINE 200MG/ML 20% VIAL 4ML INH SCH ×2 (00:37→22:00)
[2023-10-17] MEDS: HYDRALAZINE HCL 25MG TABLET PO SCH ×3 (05:25→20:58)
[2023-10-17] MEDS: BLOOD SUGAR DIAGNOSTIC STRIP TEST SCH ×4 (07:10→20:54)
[2023-10-17] MEDS: INSULIN LISPRO 100 UNITS/ML SUBCUT SCH ×4 (07:16→21:00)
[2023-10-17 07:42] LABS: HEMOGLOBIN 8.4 g/dL (14.0-18.0); MEAN CORPUSCULAR HGB CONC 32.2 g/dL (31.0-37.0); MEAN CORPUSCULAR VOLUME 90.3 fL (80.0-94.0); PLATELET 168 x1000/uL (130-400); RED BLOOD CELL COUNT 2.88 mill/uL (4.7-6.1); RED CELL DISTRIBUTION WIDTH 19.3 % (11.6-14.6); WHITE BLOOD COUNT 6.3 x1000/uL (4.5-11.0)
[2023-10-17 08:03] LABS: ALANINE AMINOTRANSFERASE < 7 IU/L (10-49); ALBUMIN 3.2 g/dL (3.2-4.8); ASPARTATE AMINOTRANSFERASE 27 IU/L (<34); BILIRUBIN TOTAL 0.6 mg/dL (0.1-1.0); CARBON DIOXIDE 23 mEq/L (21-32); CHLORIDE 101 mEq/L (98-107); GLUCOSE 57 mg/dL (70-105); POTASSIUM 4.2 mEq/L (3.5-5.1); PROTEIN TOTAL 6.8 g/dL (6.0-8.3); SODIUM 137 mEq/L (136-145); UREA NITROGEN BLOOD 34 mg/dL (9-23)
[2023-10-17 08:07] LABS: CREATININE 4.8 mg/dL (0.6-1.3)
[2023-10-17] MEDS: POLYETHYLENE GLYCOL 3350 (17GM) 1 DOSE PACK PO SCH (08:45)
[2023-10-17] MEDS: AMLODIPINE 5MG TABLET PO SCH (08:50)
[2023-10-17] MEDS: CETIRIZINE 10MG TABLET PO SCH (08:50)
[2023-10-17] MEDS: ACETAMINOPHEN 325MG TABLET PO PRN (08:51)
[2023-10-17] MEDS: RISPERIDONE 0.5MG TABLET PO SCH ×2 (08:51→20:57)
[2023-10-17] MEDS: FOLIC ACID/VITAMIN B COMP W-C TABLET PO SCH (09:08)
[2023-10-17] MEDS: ENOXAPARIN 30MG/0.3ML SYR SUBCUT SCH (09:11)
[2023-10-17] MEDS: CEFAZOLIN 1000MG PREMIX 50 ML IV SCH (16:59)
[2023-10-18] VITALS: BP 147/68; PULSE 83; RESP 18; TEMP 97.9
[2023-10-18 01:23] VITALS: PULSE 81; RESP 18; O2SAT 97
[2023-10-18] MEDS: IPRATROPIUM/ALBUTEROL 0.5-3(2.5)MG/3ML NEB HHN SCH (01:23)
[2023-10-18 04:00] VITALS: BP 170/54; PULSE 82; RESP 18; TEMP 97.7
[2023-10-18] MEDS: HYDRALAZINE HCL 25MG TABLET PO SCH (05:49)
[2023-10-18 07:29] LABS: EOSINOPHILS % 7.8 % (0.0-5.0); HEMATOCRIT. 27.3 % (42.0-52.0); HEMOGLOBIN. 8.5 g/dL (14.0-18.0); MEAN CORPUSCULAR HEMOGLOBIN 28.9 pg (28.0-32.0); MEAN CORPUSCULAR HGB CONC 31.3 g/dL (31.0-37.0); MEAN CORPUSCULAR VOLUME 92.3 fL (80.0-94.0); MEAN PLATELET VOLUME 8.5 fl (7.4-10.4); MONOCYTES % 9.4 % (2.0-8.0); NEUTROPHILS % 66.8 % (40.0-76.0); PLATELET 189 x1000/uL (130-400); RED BLOOD CELL COUNT 2.96 mill/uL (4.7-6.1); RED CELL DISTRIBUTION WIDTH 19.3 % (11.6-14.6); WHITE BLOOD COUNT 6.2 x1000/uL (4.5-11.0)
[2023-10-18] MEDS: BLOOD SUGAR DIAGNOSTIC STRIP TEST SCH (07:38)
[2023-10-18] MEDS: INSULIN LISPRO 100 UNITS/ML SUBCUT SCH (07:38)
[2023-10-18 08:00] VITALS: BP 157/78; PULSE 81; RESP 20; TEMP 96.6
[2023-10-18 08:29] LABS: CARBON DIOXIDE 25 mEq/L (21-32); CHLORIDE 101 mEq/L (98-107); GLUCOSE 71 mg/dL (70-105); PHOSPHORUS 6.4 mg/dL (2.5-4.9); SODIUM 138 mEq/L (136-145); UREA NITROGEN BLOOD 41 mg/dL (9-23)
[2023-10-18 08:45] LABS: CREATININE 5.6 mg/dL (0.6-1.3)
[2023-10-18] MEDS: POLYETHYLENE GLYCOL 3350 (17GM) 1 DOSE PACK PO SCH (09:00)
[2023-10-18] MEDS: AMLODIPINE 5MG TABLET PO SCH (09:00)
[2023-10-18] MEDS: FOLIC ACID/VITAMIN B COMP W-C TABLET PO SCH (09:03)
[2023-10-18] MEDS: RISPERIDONE 0.5MG TABLET PO SCH (09:03)
[2023-10-18] MEDS: CETIRIZINE 10MG TABLET PO SCH (09:03)
[2023-10-18] MEDS: ENOXAPARIN 30MG/0.3ML SYR SUBCUT SCH (09:04)
[2023-10-18] MEDS ORDERED: HALOPERIDOL LACTATE 5MG/ML VIAL IM NR (10:30)
[2023-10-18] MEDS ORDERED: HALOPERIDOL LACTATE 5MG/ML VIAL IM PRN (11:30)
[2023-10-18 12:00] VITALS: BP 144/72; PULSE 96; RESP 18; TEMP 96.1
[2023-10-18] MEDS ORDERED: RISPERIDONE 1MG TABLET PO SCH (21:00)
== END 2023-10-18 12:52 | disposition left against medical advice (07) | DRG 130 ==
LOC: ER 07:08 → MICUSO 09:45 → EDBEDREQ 09:48 → 8WST 10-14 18:53
PROVIDERS: ADMIT Internal Medicine; ATTEND Internal Medicine
PROC: 0BH17EZ Insertion of Endotracheal Airway into Trachea, Via Natural or Artificial Opening (ICD-10-PCS; principal; 2023-10-07)
PROC: 5A1955Z Respiratory Ventilation, Greater than 96 Consecutive Hours (ICD-10-PCS; 2023-10-07)
PROC: 02HV33Z Insertion of Infusion Device into Superior Vena Cava, Percutaneous Approach (ICD-10-PCS; 2023-10-07)
PROC: B548ZZA Ultrasonography of Superior Vena Cava, Guidance (ICD-10-PCS; 2023-10-07)
PROC: 30233N1 Transfusion of Nonautologous Red Blood Cells into Peripheral Vein, Percutaneous Approach (ICD-10-PCS; 2023-10-07)
PROC: 5A1D70Z Performance of Urinary Filtration, Intermittent, Less than 6 Hours Per Day (ICD-10-PCS; 2023-10-07)
PROC: 0W993ZZ Drainage of Right Pleural Cavity, Percutaneous Approach (ICD-10-PCS; 2023-10-08)
PROC: 5A1D70Z Performance of Urinary Filtration, Intermittent, Less than 6 Hours Per Day (ICD-10-PCS; 2023-10-09)
PROC: 0W993ZZ Drainage of Right Pleural Cavity, Percutaneous Approach (ICD-10-PCS; 2023-10-10)
PROC: 5A1D70Z Performance of Urinary Filtration, Intermittent, Less than 6 Hours Per Day (ICD-10-PCS; 2023-10-11)
PROC: 5A1D70Z Performance of Urinary Filtration, Intermittent, Less than 6 Hours Per Day (ICD-10-PCS; 2023-10-14)
PROC: 5A1D70Z Performance of Urinary Filtration, Intermittent, Less than 6 Hours Per Day (ICD-10-PCS; 2023-10-16)
DX: J96.01 Acute respiratory failure with hypoxia (principal); G92.8 Other toxic encephalopathy; K65.9 Peritonitis, unspecified; I13.2 Hypertensive heart and chronic kidney disease with heart failure and with stage 5 chronic kidney disease, or end stage renal disease; I42.9 Cardiomyopathy, unspecified; J90 Pleural effusion, not elsewhere classified; N18.6 End stage renal disease; E83.39 Other disorders of phosphorus metabolism; F29 Unspecified psychosis not due to a substance or known physiological condition; I65.22 Occlusion and stenosis of left carotid artery; E11.22 Type 2 diabetes mellitus with diabetic chronic kidney disease; L98.493 Non-pressure chronic ulcer of skin of other sites with necrosis of muscle; Z53.29 Procedure and treatment not carried out because of patient's decision for other reasons; Z20.822 Contact with and (suspected) exposure to COVID-19; N25.81 Secondary hyperparathyroidism of renal origin; D50.9 Iron deficiency anemia, unspecified; D53.9 Nutritional anemia, unspecified; E78.5 Hyperlipidemia, unspecified; E11.621 Type 2 diabetes mellitus with foot ulcer; F41.1 Generalized anxiety disorder; I50.42 Chronic combined systolic (congestive) and diastolic (congestive) heart failure; H54.7 Unspecified visual loss; E11.51 Type 2 diabetes mellitus with diabetic peripheral angiopathy without gangrene; E11.42 Type 2 diabetes mellitus with diabetic polyneuropathy; R26.9 Unspecified abnormalities of gait and mobility; R13.10 Dysphagia, unspecified; Z99.2 Dependence on renal dialysis; Z79.02 Long term (current) use of antithrombotics/antiplatelets; Z79.4 Long term (current) use of insulin; Z79.82 Long term (current) use of aspirin; Z79.899 Other long term (current) drug therapy; Z78.1 Physical restraint status; Z87.891 Personal history of nicotine dependence
CPT/HCPCS: 32555; 36415; 36573; 36600; 70496; 70498; 70551; 71045; 71250; 71270; 73630; 74176; 76604; 76770; 80048; 80053; 80061; 80202; 80305; 80320; 81003; 82140; 82270; 82375; 82550; 82607; 82728; 82746; 82805; 82962; 83036; 83540; 83550; 83605; 83615; 83735; 83880; 83986; 84100; 84145; 84439; 84443; 84478; 84484; 85014; 85018; 85025; 85027; 85651; 86705; 86709; 86850; 86900; 86920; 87070; 87077; 87186; 87340; 87426; 88108; 88312; 90935; 92610; 93005; 93306; 93880; 93970; 94003; 94640; 97162; 97166; 99291; A6261; C1725; C9113; J0360; J0690; J0885; J1200; J1630; J1650; J1815; J2060; J2250; J2543; J2704; J3010; J3370; J3490; J7060; J7608; P9016; Q9967; G0480